=== PATIENT | male | born 1990 | race Caucasian/White ===

== ENCOUNTER 2020-02-07 19:22 | Emergency (ER) | payer OTHER ==
[2020-02-07 19:28] VITALS: BP 151/89
[2020-02-07] MEDS ORDERED: IPRATROPIUM/ALBUTEROL 3 ML NEB INH STA (19:38)
--- NOTE | 2020-02-07 19:38 | ED Physician Documentation ---
PD HPI DYSPNEA - Stated complaint Stated Complaint: SOA - Chief complaint Chief Complaint: Resp - History obtained from History obtained from: Patient (29-year-old gentleman with history of mild intermittent asthma presents with shortness of breath the last 3 days. Mild nonproductive cough. No chest pain. No pedal edema or calf pain.) Review of Systems Constitutional: reports: Reviewed and negative Nose: reports: Reviewed and negative Throat: reports: Reviewed and negative Cardiac: reports: Reviewed and negative Respiratory: reports: Reviewed and negative PD PAST MEDICAL HISTORY - Past Medical History Past Medical History: Yes Respiratory: Asthma - Past Surgical History Past Surgical History: Yes Ortho: Other - Present Medications Home Medications: Ambulatory Orders Medication Instructions Recorded Confirmed Albuterol Sulf [Ventolin Hfa 1 - 2 puffs INH Q4HR PRN #1 inhaler 02/07/20 Inhaler] predniSONE [Deltasone] 60 mg PO DAILY 5 Days #15 tablet 02/07/20 - Allergies Allergies/Adverse Reactions: Allergies Allergy/AdvReac Type Severity Reaction Status Date / Time No Known Drug Allergies Allergy Verified 02/07/20 19:28 - Social History Does the pt smoke?: Yes Smoking Status: Current every day smoker Does the pt drink ETOH?: No Does the pt have substance abuse?: No - Immunizations Immunizations are current?: No Immunizations: TDAP >10years/unknown - POLST Patient has POLST: No PD ED PE NORMAL - Vitals Vital signs reviewed: Yes - General General: Alert and oriented X 3, No acute distress - HEENT HEENT: PERRL, EOMI - Neck Neck: Supple, no meningeal sign, No bony TTP - Cardiac Cardiac: RRR, No murmur - Respiratory Respiratory: Other (He is tachypneic with mildly labored breathing but speaking in full sentences he has inspiratory and expiratory wheezes with moderate air motion) - Extremities Extremities: No edema, No calf tenderness / cord - Neuro Neuro: Alert and oriented X 3, Normal speech Results - Vitals Vitals: Vital Signs - 24 hr 02/07/20 02/07/20 19:26 19:42 Temperature 37.1 C Heart Rate 69 Respiratory 18 18 Rate Blood Pressure 151/89 H O2 Saturation 96 Oxygen O2 Source Room air PD MEDICAL DECISION MAKING - ED course ED course: After the administration of a DuoNeb here his lungs were all but clear and he was feeling much better. Departure - Departure Disposition: Home, Self Care Clinical Impression: Asthma Qualifiers: Asthma severity: mild Asthma persistence: intermittent Asthma complication type: with acute exacerbation Qualified Code(s): J45.21 - Mild intermittent asthma with (acute) exacerbation Condition: Good Record reviewed to determine appropriate education?: Yes Instructions: Asthma Dc Follow-Up: [facility] [Provider Group] [facility] [Provider Group] [facility] [Provider Group] Prescriptions: Albuterol Sulf [Ventolin Hfa Inhaler] 1 - 2 puffs INH Q4HR PRN #1 inhaler PRN Reason: Shortness Of Air/Wheezing predniSONE [Deltasone] 60 mg PO DAILY 5 Days #15 tablet Comments: Follow-up with a primary care physician as soon as you are able to establish. Continue to not smoke, good job there. Return if worse.
[2020-02-07] MEDS ORDERED: predniSONE 20 MG TABLET PO STA (19:56)
== END 2020-02-07 20:07 | disposition home or self-care (01) ==
LOC: ED 19:22
DX: J45.21 Mild intermittent asthma with (acute) exacerbation (principal); F17.200 Nicotine dependence, unspecified, uncomplicated
CPT/HCPCS: 94640; 99283; 99284; J7512

== ENCOUNTER 2020-12-20 00:11 | Emergency (ER) | payer OTHER ==
[2020-12-20 00:29] VITALS: BP 151/90
[2020-12-20] MEDS ORDERED: IPRATROPIUM/ALBUTEROL 3 ML NEB INH STA (00:42)
--- NOTE | 2020-12-20 01:51 | ED Physician Documentation ---
PD HPI DYSPNEA - Stated complaint Stated Complaint: ASTMATIC BREATHING - Chief complaint Chief Complaint: Resp - History obtained from History obtained from: Patient - Additional information Additional information: Patient comes emergency department chief complaint of asthma exacerbation. He states that he used to have an albuterol inhaler but no longer does. He has been on prednisone sometimes before but does not have this either. He was just in [place], was not exposed to anybody ill. No other complaints at this time. No fevers or chills. No recent URI symptoms. No allergies. Review of Systems Ten Systems: 10 systems reviewed and negative Constitutional: reports: Reviewed and negative Eyes: reports: Reviewed and negative Ears: reports: Reviewed and negative Nose: reports: Reviewed and negative Throat: reports: Reviewed and negative Cardiac: reports: Reviewed and negative Respiratory: reports: Dyspnea, Wheezing GI: reports: Reviewed and negative : reports: Reviewed and negative Skin: reports: Reviewed and negative Musculoskeletal: reports: Reviewed and negative Neurologic: reports: Reviewed and negative Psychiatric: reports: Reviewed and negative Endocrine: reports: Reviewed and negative Immunocompromised: reports: Reviewed and negative PD PAST MEDICAL HISTORY - Past Medical History Past Medical History: Yes Cardiovascular: None Respiratory: Asthma Neuro: None Endocrine/Autoimmune: None GI: None : None HEENT: None Psych: None Musculoskeletal: None Derm: None - Past Surgical History Past Surgical History: Yes Ortho: Other - Present Medications Home Medications: Ambulatory Orders Medication Instructions Recorded Confirmed Albuterol Sulf [Ventolin Hfa 1 - 2 puffs INH Q4HR PRN #1 inhaler 02/07/20 12/20/20 Inhaler] predniSONE [Deltasone] 60 mg PO DAILY 5 Days #15 tablet 02/07/20 12/20/20 Albuterol Sulf [Ventolin Hfa 1 - 2 puffs INH Q4HR PRN #1 inhaler 12/20/20 Inhaler] - Allergies Allergies/Adverse Reactions: Allergies Allergy/AdvReac Type Severity Reaction Status Date / Time No Known Drug Allergies Allergy Verified 12/20/20 00:48 - Social History Does the pt smoke?: No Smoking Status: Never smoker Does the pt drink ETOH?: No Does the pt have substance abuse?: No Substance Use and Type: Marijuana - Immunizations Immunizations are current?: No Immunizations: TDAP >10years/unknown - POLST Patient has POLST: No PD ED PE NORMAL - Vitals Vital signs reviewed: Yes - General General: Alert and oriented X 3, No acute distress, Well developed/nourished - HEENT HEENT: Atraumatic, PERRL, EOMI, Moist mucous membranes - Neck Neck: Supple, no meningeal sign - Cardiac Cardiac: RRR, No murmur, Strong equal pulses - Respiratory Respiratory: No respiratory distress, Other (Moderate expiratory wheezes.) - Derm Derm: Warm and dry - Extremities Extremities: No deformity - Neuro Neuro: Alert and oriented X 3 - Psych Psych: Normal mood, Normal affect Results - Vitals Vitals: Vital Signs - 24 hr 12/20/20 12/20/20 00:19 00:57 Temperature 37 C Heart Rate 58 L 62 Respiratory 24 20 Rate Blood Pressure 151/90 H O2 Saturation 99 Oxygen O2 Source Room air PD MEDICAL DECISION MAKING - ED course Complexity details: considered differential, d/w patient ED course: Patient was treated with a DuoNeb in the emergency department after which his symptoms completely resolved. He was given a prescription for an albuterol inhaler. We have discussed the usual indications for return Departure - Departure Disposition: 01 Home, Self Care Condition: Stable Instructions: ED Reactive Airway Disease Prescriptions: Albuterol Sulf [Ventolin Hfa Inhaler] 1 - 2 puffs INH Q4HR PRN #1 inhaler PRN Reason: Shortness Of Air/Wheezing Discharge Date/Time: 12/20/20 02:20
== END 2020-12-20 02:20 | disposition home or self-care (01) ==
LOC: ED 00:11
DX: J45.901 Unspecified asthma with (acute) exacerbation (principal)
CPT/HCPCS: 94640; 99283

== ENCOUNTER 2022-08-13 20:33 | Emergency (ER) | payer OTHER ==
[2022-08-13 20:40] VITALS: BP 116/65
[2022-08-13] MEDS ORDERED: ALBUTEROL NEB 2.5 MG/3 ML INH STA ×2 (20:53→21:18)
--- NOTE | 2022-08-13 20:55 | ED Physician Documentation ---
PD HPI DYSPNEA - Stated complaint Stated Complaint: SOA - Chief complaint Chief Complaint: Resp - History obtained from History obtained from: Patient - History of Present Illness Timing - onset: Yesterday Timing - onset during: Exertion Timing - duration: Days (2) Timing - details: Gradual onset, Still present Inciting event(s): Out of meds (does not have albuterol at home but does have hx asthma) Improved by: Inhaler/neb Worsened by: Exertion Associated symptoms: Wheezing. No: Fever, Cough, Hemoptysis, Chest pain / discomfort, Unilateral edema Similar symptoms before: Diagnosis (childhood asthma) PD PAST MEDICAL HISTORY - Past Medical History Cardiovascular: None Respiratory: Asthma Neuro: None Endocrine/Autoimmune: None GI: None : None HEENT: None Psych: None Musculoskeletal: None Derm: None - Past Surgical History Past Surgical History: Yes Ortho: Other - Present Medications Home Medications: Ambulatory Orders Medication Instructions Recorded Confirmed Albuterol Sulf [Ventolin Hfa 1 - 2 puffs INH Q4HR PRN #1 inhaler 02/07/20 12/20/20 Inhaler] predniSONE [Deltasone] 60 mg PO DAILY 5 Days #15 tablet 02/07/20 12/20/20 Albuterol Sulf [Ventolin Hfa 1 - 2 puffs INH Q4HR PRN #1 inhaler 12/20/20 Inhaler] Albuterol Sulf [Ventolin Hfa 1 - 2 puffs INH Q4HR PRN #18 gm 08/13/22 Inhaler] - Allergies Allergies/Adverse Reactions: Allergies Allergy/AdvReac Type Severity Reaction Status Date / Time No Known Drug Allergies Allergy Verified 08/13/22 20:40 - Social History Does the pt smoke?: No Smoking Status: Never smoker Does the pt drink ETOH?: No Does the pt have substance abuse?: No - Immunizations Immunizations are current?: No Immunizations: TDAP >10years/unknown - POLST Patient has POLST: No PD ED PE NORMAL - Vitals Vital signs reviewed: Yes - General General: Alert and oriented X 3, No acute distress, Well developed/nourished - HEENT HEENT: Atraumatic, PERRL, EOMI - Cardiac Cardiac: RRR - Respiratory Respiratory: Other (BL diffuse wheezing) - Abdomen Abdomen: Non tender, Non distended Results - Vitals Vitals: Vital Signs - 24 hr 08/13/22 08/13/22 08/13/22 20:37 21:10 21:33 Temperature 36.8 C Heart Rate 112 H 89 89 Respiratory 26 H 18 18 Rate Blood Pressure 116/65 O2 Saturation 95 Oxygen O2 Source Room air PD Medical Decision Making - ED course ED course: 31-year-old male with past medical History of childhood asthma presents with wheezing this evening. PERC negative. clinical pneumonia unlikely. this appears to be a simple asthma exacerbation. Nebulizer provided with relief of symptoms. Prescription for albuterol sent to pharmacy. Plan for him to follow-up with a primary care provider. Return precautions given. Departure - Departure Disposition: Home, Self Care Clinical Impression: Asthma Condition: Good Instructions: Asthma Dc Follow-Up: Belen Larose ARNP [Provider Admit Priv/Credential] - Prescriptions: Albuterol Sulf [Ventolin Hfa Inhaler] 1 - 2 puffs INH Q4HR PRN #18 gm PRN Reason: Shortness Of Air/Wheezing Comments: You are seen in the emergency department for asthma exacerbation. A prescription for albuterol was sent to [facility] electronically. Return to the emergency department for new or worsening symptoms or other concerns. Follow-up with a primary care provider.
[2022-08-13] MEDS ORDERED: IPRATROPIUM/ALBUTEROL 3 ML NEB INH STA (21:17)
[2022-08-13] MEDS ORDERED: CHERRY SYRUP 10 ML UDC PO ONE (21:59)
[2022-08-13] MEDS ORDERED: DEXAMETHASONE 10 MG/ML VIAL PO STA (21:59)
== END 2022-08-13 22:13 | disposition home or self-care (01) ==
LOC: ED 20:33
DX: J45.909 Unspecified asthma, uncomplicated (principal)
CPT/HCPCS: 94640; 94664; 99284; A9270

== ENCOUNTER 2022-11-13 06:28 | Emergency (ER) | payer OTHER ==
[2022-11-13] MEDS ORDERED: DEXAMETHASONE 10 MG/ML VIAL IM STA (06:43)
[2022-11-13] MEDS ORDERED: IPRATROPIUM/ALBUTEROL 3 ML NEB INH STA (06:43)
[2022-11-13 06:45] VITALS: BP 139/92
--- NOTE | 2022-11-13 07:00 | ED Physician Documentation ---
History of Present Illness - Stated complaint Stated Complaint: SOA - Chief complaint Chief Complaint: Resp - History obtained from History obtained from: Patient - Additonal information Additional information: The patient comes to the emergency department chief complaint of asthma exacerbation. He has a history of asthma but has run out of his inhaler, and his breathing has been tight since last night. 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 The patient denies any recent illnesses. No fevers or chills. No cough. He is otherwise healthy. PD PAST MEDICAL HISTORY - Past Medical History Cardiovascular: None Respiratory: Asthma Neuro: None Endocrine/Autoimmune: None GI: None : None HEENT: None Psych: None Musculoskeletal: None Derm: None - Past Surgical History Past Surgical History: Yes Ortho: Other - Present Medications Home Medications: Ambulatory Orders Medication Instructions Recorded Confirmed Albuterol Sulf [Ventolin Hfa 1 - 2 puffs INH Q4HR PRN #1 inhaler 02/07/20 12/20/20 Inhaler] predniSONE [Deltasone] 60 mg PO DAILY 5 Days #15 tablet 02/07/20 12/20/20 Albuterol Sulf [Ventolin Hfa 1 - 2 puffs INH Q4HR PRN #1 inhaler 12/20/20 Inhaler] Albuterol Sulf [Ventolin Hfa 1 - 2 puffs INH Q4HR PRN #18 gm 08/13/22 Inhaler] Albuterol Sulf [Ventolin Hfa 1 - 2 puffs INH Q4HR PRN #18 gm 11/13/22 Inhaler] predniSONE [Deltasone] 60 mg PO DAILY 5 Days #15 tablet 11/13/22 - Allergies Allergies/Adverse Reactions: Allergies Allergy/AdvReac Type Severity Reaction Status Date / Time No Known Drug Allergies Allergy Verified 11/13/22 06:42 - Social History Does the pt smoke?: No Smoking Status: Never smoker Does the pt drink ETOH?: No Does the pt have substance abuse?: No - Immunizations Immunizations are current?: No Immunizations: TDAP >10years/unknown - POLST Patient has POLST: No PD ED PE NORMAL - Vitals Vital signs reviewed: Yes - General General: Alert and oriented X 3, Well developed/nourished, Other (Mild respiratory distress) - HEENT HEENT: Atraumatic, PERRL, EOMI, Moist mucous membranes - Neck Neck: Supple, no meningeal sign - Cardiac Cardiac: RRR, No murmur, Strong equal pulses - Respiratory Respiratory: Other (Mildly decreased air movement bilaterally with fine wheezes. Moderately prolonged expiratory phase.) - Derm Derm: Normal color, Warm and dry, No rash - Extremities Extremities: No deformity, No edema - Neuro Neuro: Alert and oriented X 3 - Psych Psych: Normal mood, Normal affect Results - Vitals Vitals: Vital Signs - 24 hr 11/13/22 06:37 Temperature 36.2 C L Heart Rate 83 Respiratory 12 Rate Blood Pressure 139/92 H O2 Saturation 97 Oxygen O2 Source Room air PD Medical Decision Making - ED course Complexity details: reviewed results, re-evaluated patient, considered differential, d/w patient ED course: The patient's initial peak flow was 190. He was given a DuoNeb and Decadron and following this, his peak flow improved to 450. This was much better although for the patient's body size and age, his predicted peak flow would be 650. The patient was completely clear after his DuoNeb and reported feeling much better. I sent prescriptions for a new albuterol inhaler as well as steroid course to the [facility] pharmacy in [place]. We have discussed the need for follow-up and the usual indications for return. Departure - Departure Disposition: 01 Home, Self Care Clinical Impression: Acute asthma exacerbation Qualifiers: Asthma severity: mild Asthma persistence: intermittent Qualified Code(s): J45.21 - Mild intermittent asthma with (acute) exacerbation Condition: Stable Instructions: Asthma Dc Follow-Up: Janeth Power ARNP [Credentialed Staff Provider] - Prescriptions: Albuterol Sulf [Ventolin Hfa Inhaler] 1 - 2 puffs INH Q4HR PRN #18 gm PRN Reason: Shortness Of Air/Wheezing predniSONE [Deltasone] 60 mg PO DAILY 5 Days #15 tablet Comments: Your prescriptions have been electronically transmitted to the [facility] pharmacy in [place].
== END 2022-11-13 07:25 | disposition home or self-care (01) ==
LOC: ED 06:28
DX: J45.21 Mild intermittent asthma with (acute) exacerbation (principal)
CPT/HCPCS: 94150; 94640; 94664; 96372; 99283; 99284

== ENCOUNTER 2023-12-20 09:14 | Emergency (ER) | payer OTHER ==
[2023-12-20] MEDS ORDERED: DEXAMETHASONE 10 MG/ML VIAL IM STA (12:02)
--- NOTE | 2023-12-20 12:04 | ED Physician Documentation ---
History of Present Illness - Stated complaint Stated Complaint: BACK PX - Chief complaint Chief Complaint: Back Pain - History obtained from History obtained from: Patient - Additonal information Additional information: The patient comes to the emergency department chief complaint of right lower back pain after straining his back yesterday while bending over to guide his dog out the door. The patient states that he has been doing a lot of heavy lifting at work and this has been going fine but he does feel as though his back has been tight from this. He states that yesterday, he was taking his dog out and he bent over to give the dog and nudged out the door. He says as soon as he bent over he felt a sudden twinge and searing pain in the musculature of his right low back and immediately had to get on the floor. Patient states his back has been very stiff ever since. He states range of motion is limited and that the back hurts in the area where he injured it. He has an electrical pain going down his right leg. No loss of bowel or bladder control. No weakness in his leg. No other injuries or complaints at this time. No history of back problems per se. PD PAST MEDICAL HISTORY - Past Medical History Past Medical History: Yes Cardiovascular: None Respiratory: Asthma Neuro: None Endocrine/Autoimmune: None GI: None : None HEENT: None Psych: None Musculoskeletal: None Derm: None - Past Surgical History Past Surgical History: Yes Ortho: Other - Present Medications Home Medications: Ambulatory Orders Medication Instructions Recorded Confirmed Ciclesonide [Alvesco] 6.1 gm IH BID 12/20/23 12/20/23 Cyclobenzaprine [Flexeril] 10 mg PO TID PRN #20 tablet 12/20/23 HYDROcod/ACETAM 5/325 [Callahan 5/325] 1 - 2 tablet PO Q6H PRN #14 tablet 12/20/23 predniSONE [Deltasone] 10 mg PO [id number] #42 tab 12/20/23 - Allergies Allergies/Adverse Reactions: Allergies Allergy/AdvReac Type Severity Reaction Status Date / Time No Known Drug Allergies Allergy Verified 12/20/23 09:26 - Social History Does the pt smoke?: No Smoking Status: Never smoker Does the pt drink ETOH?: No Does the pt have substance abuse?: No - Immunizations Immunizations are current?: No Immunizations: TDAP >10years/unknown - POLST Patient has POLST: No PD ED PE NORMAL - Vitals Vital signs reviewed: Yes - General General: Alert and oriented X 3, No acute distress, Well developed/nourished - HEENT HEENT: Atraumatic, EOMI, Moist mucous membranes - Neck Neck: Supple, no meningeal sign - Cardiac Cardiac: RRR, No murmur, Strong equal pulses - Respiratory Respiratory: No respiratory distress, Clear bilaterally - Abdomen Abdomen: Soft, Non tender, Non distended - Back Back: No spinal TTP, Other (Tenderness palpation right lumbar paraspinal musculature extending down to right SI area.) - Derm Derm: Normal color, Warm and dry, No rash - Extremities Extremities: No deformity, No edema - Neuro Neuro: No motor deficit, No sensory deficit (Grossly oriented, alert), Other (Alert, ) - Psych Psych: Normal mood, Normal affect Results - Vitals Vitals: Vital Signs - 24 hr 12/20/23 09:22 Temperature 36.8 C Heart Rate 80 Respiratory 20 Rate Blood Pressure 149/89 H O2 Saturation 99 Oxygen O2 Source Room air PD Medical Decision Making - ED course Complexity details: considered differential, d/w patient ED course: The patient stated he had driven himself here so he was given non-sedating medications for symptomatic relief. His symptoms sounded distinctly muscular in origin, And I gave him Toradol and Decadron. I have advised him that the symptoms should pass on their own and there is no evidence of concerning neurologic compromise. Departure - Departure Disposition: 01 Home, Self Care Clinical Impression: Lumbar strain Qualifiers: Encounter type: initial encounter Qualified Code(s): S39.012A - Strain of muscle, fascia and tendon of lower back, initial encounter Condition: Stable Instructions: ED Sprain Strain Lumbar Prescriptions: predniSONE [Deltasone] 10 mg PO [id number] #42 tab Cyclobenzaprine [Flexeril] 10 mg PO TID PRN #20 tablet PRN Reason: Spasms HYDROcod/ACETAM 5/325 [Callahan 5/325] 1 - 2 tablet PO Q6H PRN #14 tablet PRN Reason: Pain Comments: Your symptoms are most indicative of a muscle strain in your right lower back. In general, these can cause spasm and be very uncomfortable, but they will pass on their own. If you do not notice any improvement in the next couple of weeks, please call your primary doctor to discuss MRI. It is important that you do not do any heavy lifting until your back is improved. You should employ ice, heat, stretching, and range of motion exercises, as well as massage to help with the symptoms. Prescriptions for his medications to help with your back is been electronically transmitted to the [facility] pharmacy in [place]. You may pick them up until 5:00 this afternoon; otherwise, you will have to wait till tomorrow. Forms: Activity restrictions
[2023-12-20] MEDS: KETOROLAC 60 MG/2 ML VIAL IM STA (12:06)
[2023-12-20] MEDS: DEXAMETHASONE 10 MG/ML VIAL IM STA (12:19)
[2023-12-20 12:32] VITALS: BP 131/91; O2SAT 98
== END 2023-12-20 12:32 | disposition home or self-care (01) ==
LOC: ED 09:14
DX: S39.012A Strain of muscle, fascia and tendon of lower back, initial encounter (principal); X50.9XXA Other and unspecified overexertion or strenuous movements or postures, initial encounter
CPT/HCPCS: 96372; 99283

== ENCOUNTER 2024-01-03 20:59 | Emergency (ER) | payer OTHER ==
[2024-01-03 21:14] VITALS: BP 122/77
[2024-01-03] MEDS: IPRATROPIUM/ALBUTEROL 3 ML NEB INH STA (21:45)
[2024-01-03] MEDS: ALBUTEROL NEB 2.5 MG/3 ML INH STA ×2 (22:00)
[2024-01-03 22:13] VITALS: O2SAT 98
--- NOTE | 2024-01-03 22:36 | ED Physician Documentation ---
History of Present Illness - Stated complaint Stated Complaint: SOA - Chief complaint Chief Complaint: Resp - History obtained from History obtained from: Patient - Additonal information Additional information: 33-year-old man with history of mild intermittent asthma presents with shortness of breath over the past couple of days after running out of his albuterol inhaler 2 weeks ago. Denies fever, cough, URI symptoms or other complaints. PD PAST MEDICAL HISTORY - Past Medical History Cardiovascular: None Respiratory: Asthma Neuro: None Endocrine/Autoimmune: None GI: None : None HEENT: None Psych: None Musculoskeletal: None Derm: None - Past Surgical History Past Surgical History: Yes Ortho: Other - Present Medications Home Medications: Ambulatory Orders Medication Instructions Recorded Confirmed Ciclesonide [Alvesco] 6.1 gm IH BID 12/20/23 01/03/24 Albuterol Sulf [Ventolin Hfa 1 - 2 puffs INH Q4HR PRN #18 gm 01/03/24 Inhaler] Albuterol Sulfate [Proair 2 inh INH BID 01/03/24 01/03/24 Respiclick] - Allergies Allergies/Adverse Reactions: Allergies Allergy/AdvReac Type Severity Reaction Status Date / Time No Known Drug Allergies Allergy Verified 12/20/23 09:26 - Social History Does the pt smoke?: No Smoking Status: Never smoker Does the pt drink ETOH?: No Does the pt have substance abuse?: No - Immunizations Immunizations are current?: No Immunizations: TDAP >10years/unknown - POLST Patient has POLST: No PD ED PE NORMAL - Vitals Vital signs reviewed: Yes - General General: Alert and oriented X 3, No acute distress, Well developed/nourished - HEENT HEENT: Atraumatic, PERRL, EOMI - Neck Neck: Supple, no meningeal sign - Cardiac Cardiac: RRR - Respiratory Respiratory: No respiratory distress, Other (No increased work of breathing. Bilateral and expiratory and inspiratory wheezing.) Results - Vitals Vitals: Vital Signs - 24 hr 01/03/24 01/03/24 01/03/24 21:09 21:17 21:45 Temperature 36.9 C Heart Rate 89 96 Respiratory 18 17 18 Rate Blood Pressure 122/77 O2 Saturation 97 01/03/24 01/03/24 22:00 22:08 Temperature Heart Rate 96 100 Respiratory 18 16 Rate Blood Pressure O2 Saturation 98 Oxygen O2 Source Room air PD Medical Decision Making - ED course ED course: 33-year-old man presents with mild asthma exacerbation, resolving after 3 nebulizer treatments. Prescription refilled to pharmacy. Return precautions given. Plan to follow-up with primary care provider. Plan to follow-up with primary care provider. Departure - Departure Disposition: 01 Home, Self Care Clinical Impression: Asthma exacerbation Condition: Stable Instructions: Asthma Dc Prescriptions: Albuterol Sulf [Ventolin Hfa Inhaler] 1 - 2 puffs INH Q4HR PRN #18 gm PRN Reason: Shortness Of Air/Wheezing Comments: You were seen in the emergency department for asthma exacerbation. Albuterol sent to [facility] pharmacy in [place]. Please follow-up with your primary care provider and return to the emergency department if you have any new or worsening symptoms or other concerns.
== END 2024-01-03 22:38 | disposition home or self-care (01) ==
LOC: ED 20:59
DX: J45.901 Unspecified asthma with (acute) exacerbation (principal)
CPT/HCPCS: 94640; 94664; 99284; 99285